=== PATIENT | female | born 1990 | race African-American/Black ===

== ENCOUNTER → 2017-10-23 | Emergency (ER) | payer SELFPAY ==
[~2017-10-23] VITALS: Ht 154.9 cm; Wt 106.8 kg
[2017-10-23 16:40] VITALS: BP 124/83
== END | disposition home or self-care (01) ==
LOC: EMS 16:39
DX: R42 Dizziness and giddiness (principal); Z53.21 Procedure and treatment not carried out due to patient leaving prior to being seen by health care provider